=== PATIENT | female | born 1950 | race Asian ===

== ENCOUNTER 2017-12-17 08:20 | Outpatient (RCR) | payer MEDICARE, OTHER ==
[~2017-12-17 08:20] MED LIST: ADVAIR 250-501 EACH INH; ALLOPURINOL100 M1 ORAL; CIPROFLOXACIN500 M2 ORAL; CITALOPRAM HBR40 M1; COGENTIN1 MG ORAL; DIOVAN160 MG ORAL; DIPHENHYDRAMINE25 M1 ORAL; ENALAPRIL MALEAT5 MG ORAL; ENALAPRIL MALEAT5 MG PO; GEMFIBROZIL600 MG; INDOMETHACIN75 MG ORAL; JANUVIA100 MG; JANUVIA100 MG ORAL; LOPID600 MG ORAL; MUCINEX DM ER1 EAC1 PO; PROTONIX40 MG ORAL; THORAZINE25 MG PO; TRIFLUOPERAZINE5 MG PO; VENLAFAXINE H37.5 MG ORAL; VENLAFAXINE HCL25 MG ORAL; VENTOLIN HFA18 GM INH
== END 2018-01-02 | disposition home or self-care (01) ==
LOC: PTY 08:20
DX: R59.0 Localized enlarged lymph nodes (principal)

== ENCOUNTER 2018-02-11 08:00 | Outpatient (RCR) | payer MEDICARE, OTHER | END 2018-03-04 | disposition home or self-care (01) | LOC: PTY 08:00 | DX: I89.0 Lymphedema, not elsewhere classified (principal) ==